=== PATIENT | male | born 1985 | race Caucasian/White ===

== ENCOUNTER 2017-07-30 14:18 | Emergency (ER) | payer OTHER ==
--- NOTE | 2017-07-30 16:05 | EDM.PDOC ---
ED HPI GENERAL MEDICAL PROBLEM - General Chief Complaint: Respiratory Problem Stated Complaint: COUGH/CONGESTION Time Seen by Provider: 07/30/17 15:25 Source of Information: Reports: Patient History Limitations: Reports: No Limitations - History of Present Illness INITIAL COMMENTS - FREE TEXT/NARRATIVE: 32-year-old male presents for evaluation and treatment of cough and congestion. Patient reports he's been ill for the last 8 days. Symptoms significantly worsened over the last 2 days. Current symptoms include cough, chills, headaches , body aches, ear pain and sore throat. Unsure if he is having fevers as he has not taken his temperature. No nausea or vomiting. Patient reports he has significant congestion and when he bends his head this seems to help relieve the congestion. No influenza vaccine this season. Patient recently relocated from [place]. Reports multiple ill contacts. - Related Data Allergies Allergy/AdvReac Type Severity Reaction Status Date / Time No Known Allergies Allergy Verified 07/30/17 14:54 Home Meds: Home Meds Azithromycin [IJD: Azithromycin] 250 mg PO DAILY #6 tab 07/30/17 [Rx] Benzonatate [Tessalon Perle] 100 mg PO TID PRN #20 capsule 07/30/17 [Rx] ED ROS GENERAL - Review of Systems Review Of Systems: See Below Constitutional: Reports: Chills, Fatigue. Denies: Fever HEENT: Reports: Ear Pain, Throat Pain, Other (reports nasal congestion) Respiratory: Reports: Cough, Sputum GI/Abdominal: Denies: Nausea, Vomiting ED EXAM, GENERAL - Physical Exam Exam: See Below Exam Limited By: No Limitations General Appearance: Alert, WD/WN, Mild Distress (acutely ill appearing) Eye Exam: Bilateral Eye: Normal Inspection Ears: Normal External Exam, Normal Canal, Hearing Grossly Normal, Normal TMs Nose: Normal Inspection Throat/Mouth: Normal Inspection, Normal Lips, Normal Oropharynx, Normal Voice, No Airway Compromise Neck: Normal Inspection Respiratory/Chest: No Respiratory Distress, Lungs Clear, Normal Breath Sounds Cardiovascular: Normal Peripheral Pulses, Regular Rate, Rhythm, No Murmur Neurological: Alert, Oriented, Normal Cognition Psychiatric: Normal Affect, Normal Mood Skin Exam: Normal Color, Diaphoretic, Increased Warmth Course - Vital Signs Last Recorded V/S: Last Vital Signs Temp 36.1 C 07/30/17 14:54 Pulse 94 03/03/18 14:54 Resp 18 07/30/17 14:54 BP 126/83 07/30/17 14:54 Pulse Ox 99 07/30/17 14:54 - Orders/Labs/Meds Orders: Active Orders 24 hr Category Date Time Status Chest 2V [CR] Stat Exams 07/30/17 15:39 Taken - Radiology Interpretation Free Text/Narrative:: Chest: 2 views of the chest were obtained. Comparison: No prior chest x-ray. Heart size and mediastinum are normal. Lungs are clear. Bony structures are unremarkable. Impression: 1. Nothing acute is identified on 2 view chest x-ray. - Re-Assessments/Exams Free Text/Narrative Re-Assessment/Exam: 07/30/17 17:36 influenza returned negative. I reviewed the chest x-ray and lab results with the patient. Plan will be to treat for bronchitis. Discharge instructions as document it. Departure - Departure Time of Disposition: 17:36 Disposition: Home, Self-Care 01 Condition: Fair Clinical Impression: Bronchitis - Discharge Information Prescriptions: Azithromycin [IJD: Azithromycin] 250 mg PO DAILY #6 tab Benzonatate [Tessalon Perle] 100 mg PO TID PRN #20 capsule PRN Reason: Cough Instructions: Bronchiolitis, Pediatric Referrals: PCP,None [Primary Care Provider] - Forms: ED Department Discharge, ED Return to Work/School Form Additional Instructions: azithromycin daily as prescribed. 2 tabs PO day 1 then 1 tab PO days 2-5 for 5 days total. tessalon perles 1-2 caps PO tid prn cough note for work given. follow-up with family [facility] if symptoms have not improved within 2 weeks Please return to the ER should your symptoms change or worsen. - My Orders Last 24 Hours: My Active Orders 07/30/17 15:39 Chest 2V [CR] Stat - Assessment/Plan Last 24 Hours: My Active Orders 07/30/17 15:39 Chest 2V [CR] Stat
--- NOTE | 2017-08-01 09:15 | CR ---
Chest: Two views of the chest were obtained. Comparison: No prior chest x-ray. Heart size and mediastinum are normal. Lungs are clear. Bony structures are unremarkable. Impression: 1. Nothing acute is identified on two-view chest x-ray. Diagnostic code #1
== END 2017-07-30 18:13 | disposition home or self-care (01) ==
LOC: JD.ED 14:18
DX: J40 Bronchitis, not specified as acute or chronic (principal)
CPT/HCPCS: 71046; 71046-26; 87804; 99283; 99284